=== PATIENT | female | born 1960 | race Caucasian/White ===

== ENCOUNTER → 2018-07-24 | Outpatient (CLI) | payer OTHER ==
[~2018-07-24] MED LIST: ALBU90OI6 INH; Benazepril HCl10 MG PO; CYCL10 PO; EPHEDRINE IJ; HYDACE5 PO; IBUP800 PO; Ipratr-Albuterol3 ML IH; PRAVASTATIN SOD10 MG PO; RANI150 PO; Synthroid25 MCG PO
== END | disposition home or self-care (01) ==
LOC: PLD 07:46 → LAB SHORT 07:46
DX: R23.4 Changes in skin texture (principal); L85.8 Other specified epidermal thickening
CPT/HCPCS: 88305; 88312

== ENCOUNTER 2019-02-18 09:41 | Emergency (ER) | payer OTHER ==
[~2019-02-18] VITALS: Ht 165.1 cm; Wt 97.5 kg
[2019-02-18 12:32] LABS: BASOPHILS ABSOLUTE AUTO 0.04 K/mm3 (0.00-0.23); BASOPHILS PERCENT AUTO 1 % (0-2); EOSINOPHILS ABSOLUTE AUTO 0.32 K/mm3 (0.00-0.68); EOSINOPHILS PERCENT AUTO 6 % (0-6); Hematocrit 44.3 % (33.0-51.0); Hemoglobin 14.5 g/dL (11.5-16.0); IMMATURE GRAN ABSOLUTE AUTO 0.01 K/mm3 (0.00-0.10); IMMATURE GRAN PERCENT AUTO 0 % (0-1); LYMPHOCYTES ABSOLUTE AUTO 1.85 K/mm3 (0.84-5.20); LYMPHOCYTES PERCENT AUTO 33 % (21-46); MONOCYTES ABSOLUTE AUTO 0.34 K/mm3 (0.16-1.47); MONOCYTES PERCENT AUTO 6 % (4-13); Mean Corpuscular HGB 28.6 pg (26.0-34.0); Mean Corpuscular HGB Conc 32.7 g/dL (31.5-36.5); Mean Corpuscular Volume 87 fL (80-100); Mean Platelet Volume 12.8 fL (9.1-12.4); NEUTROPHILS ABSOLUTE AUTO 3.09 K/mm3 (1.96-9.15); NEUTROPHILS PERCENT AUTO 55 % (41-73); Platelet Count 234 K/mm3 (150-400); RDW Coefficient Variation 12.6 % (11.7-14.2); RDW Standard Deviation 39.5 fL (35.1-46.3); Red Blood Cell Count 5.07 M/mm3 (3.80-5.20); White Blood Cell Count 5.65 K/mm3 (4.00-11.30)
[2019-02-18 12:42] LABS: Alanine Aminotransfer (ALT/SGP 23 U/L (12-78); Albumin, Blood 3.8 g/dL (3.4-5.0); Alk Phos 76 U/L (50-136); Anion Gap 6 mmol/L (6-16); Aspartate Aminotrans (AST/SGOT 17 U/L (12-37); Bilirubin, Total 0.4 mg/dL (0.1-1.0); Blood Urea Nitrogen 16 mg/dL (8-24); Bun/Creatinine Ratio 21.8 (12.0-20.0); CO2, Blood 25 mmol/L (21-32); Calcium, Blood 9.3 mg/dL (8.5-10.1); Chloride, Blood 109 mmol/L (98-108); Creatinine, Blood 0.74 mg/dL (0.40-1.00); Globulin, Blood 3.7 g/dL (2.2-4.0); Glomerular Filtration Rate >60 (60-); Glucose, Blood 96 mg/dL (70-99); Potassium, Blood 4.2 mmol/L (3.5-5.5); Sodium, Blood 140 mmol/L (136-145); Total Protein, Blood 7.5 g/dL (6.4-8.2); Troponin I <0.015 ng/mL (0.000-0.040)
[2019-02-18] MEDS ORDERED: AMLO10 PO (14:31)
[2019-02-18] MEDS ORDERED: IBUP600 PO (14:31)
== END 2019-02-18 14:34 | disposition home or self-care (01) ==
LOC: ER 09:41
PROVIDERS: Emergency Medicine
DX: R07.9 Chest pain, unspecified (principal); I10 Essential (primary) hypertension; E03.9 Hypothyroidism, unspecified; J45.909 Unspecified asthma, uncomplicated; Z87.891 Personal history of nicotine dependence; Z88.8 Allergy status to other drugs, medicaments and biological substances; Z88.1 Allergy status to other antibiotic agents; Z88.0 Allergy status to penicillin; Z88.5 Allergy status to narcotic agent; Z91.041 Radiographic dye allergy status; Z79.899 Other long term (current) drug therapy
CPT/HCPCS: 36415; 71046; 80053; 84484; 85025; 93005; 93010; 96374; 99285-25; J1885

== ENCOUNTER → 2019-02-20 | Outpatient (CLI) | payer OTHER ==
[~2019-02-20] MED LIST changes: +AMLO10 PO; +IBUP600 PO
== END | disposition home or self-care (01) ==
LOC: LAB SHORT 14:20 → PLD 14:20
DX: D22.5 Melanocytic nevi of trunk (principal)
CPT/HCPCS: 88305

== ENCOUNTER 2021-05-26 11:09 | Day surgery (SDC) | payer OTHER ==
[~2021-05-26] VITALS: Ht 167.6 cm; Wt 94.3 kg
[2021-05-26] MEDS ORDERED: LISI20 (12:43)
--- NOTE | 2021-05-26 16:52 | NUR ---
05/26/21 1652 MARIAA HUNTER PT STATED SMALL RASH ON R SIDE NECK. WAS REASSURED NO IODINE WAS USED IN PROCEDURE- A KNOWN ALERGEN. PT WAS INSTRUCTED TO CALL DR OFFICE IF ISSUE PERSISTED AND TO GO TO ED IF DIFFULTY BREATHING OCCURED. END NOTE ORSC.RDS
== END 2021-05-26 16:34 | disposition home or self-care (01) ==
LOC: ORSCSDS 11:09
PROVIDERS: Orthopaedic Surgery
PROC: 0LQ24ZZ Repair Left Shoulder Tendon, Percutaneous Endoscopic Approach (ICD-10-PCS; principal; 2021-05-26 12:45)
PROC: 0RNK4ZZ Release Left Shoulder Joint, Percutaneous Endoscopic Approach (ICD-10-PCS; principal; 2021-05-26 12:45)
PROC: 0LS44ZZ Reposition Left Upper Arm Tendon, Percutaneous Endoscopic Approach (ICD-10-PCS; principal; 2021-05-26 12:45)
DX: M75.112 Incomplete rotator cuff tear or rupture of left shoulder, not specified as traumatic (principal); M75.22 Bicipital tendinitis, left shoulder; M75.42 Impingement syndrome of left shoulder; M75.32 Calcific tendinitis of left shoulder; I10 Essential (primary) hypertension; J45.909 Unspecified asthma, uncomplicated; Z87.891 Personal history of nicotine dependence; E78.5 Hyperlipidemia, unspecified; E03.9 Hypothyroidism, unspecified; Z79.899 Other long term (current) drug therapy
CPT/HCPCS: C1713; J0171; J1100; J2250; J2405; J2704; J3010; J3370; J7120

== ENCOUNTER 2021-10-22 20:15 | Emergency (ER) | payer OTHER ==
[~2021-10-22] VITALS: Ht 167.6 cm; Wt 99.8 kg
[~2021-10-22 20:15] MED LIST changes: +LISI20
[2021-10-22 21:31] LABS: BASOPHILS ABSOLUTE AUTO 0.04 K/mm3 (0.00-0.23); BASOPHILS PERCENT AUTO 0 % (0-2); EOSINOPHILS PERCENT AUTO 1 % (0-6); Hematocrit 43.6 % (33.0-51.0); Hemoglobin 14.4 g/dL (11.5-16.0); IMMATURE GRAN ABSOLUTE AUTO 0.01 K/mm3 (0.00-0.10); IMMATURE GRAN PERCENT AUTO 0 % (0-1); LYMPHOCYTES PERCENT AUTO 22 % (21-46); MONOCYTES ABSOLUTE AUTO 0.78 K/mm3 (0.16-1.47); MONOCYTES PERCENT AUTO 9 % (4-13); Mean Corpuscular HGB 28.5 pg (26.0-34.0); Mean Corpuscular Volume 86 fL (80-100); NEUTROPHILS ABSOLUTE AUTO 6.11 K/mm3 (1.96-9.15); NEUTROPHILS PERCENT AUTO 68 % (41-73); Platelet Count 279 K/mm3 (150-400); RDW Coefficient Variation 12.8 % (11.7-14.2); RDW Standard Deviation 40.2 fL (35.1-46.3); Red Blood Cell Count 5.06 M/mm3 (3.80-5.20); White Blood Cell Count 9.04 K/mm3 (4.00-11.30)
[2021-10-22 21:36] LABS: Influenza A, PCR NEGATIVE (NEGATIVE); Influenza B, PCR NEGATIVE (NEGATIVE); Resp Syncytial Virus, PCR NEGATIVE (NEGATIVE); SARS-Cov-2 (COVID-19) PCR, MMC NEGATIVE (NEGATIVE)
[2021-10-22 22:07] LABS: Albumin, Blood 3.6 g/dL (3.4-5.0); Albumin/Globulin Ratio 0.8 (0.8-1.8); Bilirubin, Total 0.5 mg/dL (0.1-1.0); Bun/Creatinine Ratio 16.8 (12.0-20.0); Calcium, Blood 9.5 mg/dL (8.5-10.1); Creatinine, Blood 1.01 mg/dL (0.40-1.00); Globulin, Blood 4.5 g/dL (2.2-4.0); Potassium, Blood 3.5 mmol/L (3.5-5.5); Total Protein, Blood 8.1 g/dL (6.4-8.2)
[2021-10-23] MEDS ORDERED: Protonix40 MG PO (01:12)
[2021-10-23] MEDS ORDERED: ALBU90OI INH (02:20)
== END 2021-10-23 01:26 | disposition home or self-care (01) ==
LOC: ER 20:15
PROVIDERS: Physician Assistant
DX: J20.9 Acute bronchitis, unspecified (principal); R00.2 Palpitations; R10.13 Epigastric pain; Z87.891 Personal history of nicotine dependence; Z20.822 Contact with and (suspected) exposure to COVID-19
CPT/HCPCS: 0241U; 36415; 71045; 80053; 84484; 85025; 93005; 93010; 99285-25

== ENCOUNTER → 2023-09-06 | Outpatient (CLI) | payer OTHER ==
[~2023-09-06] MED LIST changes: +ALBU90OI INH; +Protonix40 MG PO; +QVAR REDIHALE10.6 G3 INH; +TALTZ AUTO80 MG/1 M1 SC; +ZESTORETIC 20-1 EAC1 PO
== END ==
LOC: LAB SHORT 12:40 → LAB 12:40
DX: N39.0 Urinary tract infection, site not specified (principal)
CPT/HCPCS: 87086

== ENCOUNTER → 2023-10-31 | Outpatient (CLI) | payer OTHER ==
[2023-11-02 19:04] LABS: HIV 1,2 COMBO ANTIGEN/ANTIBODY Negative (Negative)
== END ==
LOC: LAB SHORT 18:44 → LAB 18:44
PROVIDERS: Student in an Organized Health Care Education/Training Program
DX: Z11.4 Encounter for screening for human immunodeficiency virus [HIV] (principal); E66.9 Obesity, unspecified
CPT/HCPCS: 83036; 87389

== ENCOUNTER 2025-04-30 17:37 | Emergency (ER) | payer OTHER ==
[~2025-04-30] VITALS: Ht 170.2 cm; Wt 88.0 kg
[~2025-04-30 17:37] MED LIST changes: +EUTHYROX50 MCG PO; -Synthroid25 MCG PO
[2025-04-30] MEDS ORDERED: NS 1,000 ML IV SCH (19:30)
[2025-04-30] MEDS ORDERED: Propofol 10mg/ml 20 ml Vial (Procedural) IV SCH (19:30)
[2025-04-30] MEDS ORDERED: FentaNYL Citrate 50 MCG/ML 2 ML Injection IV ONE (19:35)
[2025-04-30 20:15] VITALS: BP 142/89
[2025-04-30] MEDS ORDERED: Ketorolac Tromethamine 15mg Vial IV ONE (20:25)
[2025-04-30] MEDS ORDERED: HYDROmorphone HCl/Pf 1MG SYR IV ONE (20:25)
[2025-04-30] MEDS ORDERED: RX Prepack 6 Tabs Oxycodone 5mg UD ONE (21:05)
[2025-04-30] MEDS ORDERED: Roxicodone5 MG PO (21:14)
[2025-04-30] MEDS ORDERED: RX Prepack 2 Tabs Ondansetron ODT 4MG UD ONE (22:30)
[2025-05-06] MEDS ORDERED: TREMFYA100 MG/1 M SC (10:17)
== END 2025-04-30 22:33 | disposition home or self-care (01) ==
LOC: ER 17:37
DX: S82.852A Displaced trimalleolar fracture of left lower leg, initial encounter for closed fracture (principal); W01.0XXA Fall on same level from slipping, tripping and stumbling without subsequent striking against object, initial encounter; I10 Essential (primary) hypertension; E03.9 Hypothyroidism, unspecified; E78.5 Hyperlipidemia, unspecified; Z88.1 Allergy status to other antibiotic agents; Z88.0 Allergy status to penicillin; Z88.8 Allergy status to other drugs, medicaments and biological substances; Z91.041 Radiographic dye allergy status; Z79.899 Other long term (current) drug therapy; Z79.890 Hormone replacement therapy; Z87.891 Personal history of nicotine dependence
CPT/HCPCS: 27818; 73560-LT; 73600; 73610; 96374-59; 96375-59; 99152; 99153; 99283-25; A9270; J1171; J1885; J2704; J3010; J7030